=== PATIENT | female | born 1940 | race Caucasian/White ===

== ENCOUNTER 2024-09-20 01:32 | Observation (INO) | payer MEDICARE, SELFPAY ==
[2024-09-19 21:40] VITALS: BP 203/100
[2024-09-19 22:43] LABS: % Basophils 0.6 % (0-2); % Eosinophils 0.3 % (0-6); % Immature Granulocytes 0.3 % (0-0.5); % Lymphocytes 8.7 % (20.5-51.1); % Neutrophils 84.1 % (42.2-75.2); Absolute Lymphocytes 0.6 10^3/uL (1.2-3.4); Absolute Monocytes 0.4 10^3/uL (0.1-0.6); Absolute Neutrophils 5.8 10^3/uL (1.4-6.5); Hematocrit 40.1 % (37.0-47.0); Hemoglobin 13.5 g/dL (12.0-16.0); Mean Corp Hgb Conc. 33.7 g/dL (33.0-37.0); Mean Corpuscular Hgb 28.8 pg (27.0-31.0); Mean Corpuscular Volume 85.5 fL (81.0-99.0); Mean Platelet Volume 10.8 fL (7.4-10.4); Nucleated Red Blood Cells % 0 %; Platelet Count 191 10^3/uL (130-400); Red Blood Cell Count 4.69 10^6/uL (4.20-5.40); White Blood Cell Count 6.9 10^3/uL (4.8-10.8)
[2024-09-19 22:56] LABS: ALT (SGPT) 17 U/L (0-35); AST (SGOT) 30 U/L (14-36); Albumin 4.4 g/dl (3.5-5.0); Alkaline Phosphatase 66 U/L (38-126); Blood Urea Nitrogen 17 mg/dl (7-17); Calcium 10.9 mg/dl (8.4-10.2); Carbon Dioxide 26 mmol/L (22-30); Chloride 103 mmol/L (98-107); Glucose 111 mg/dl (70-99); Sodium 139 mmol/L (135-145); Total Bilirubin 0.4 mg/dl (0.2-1.3); Total Protein 7.2 g/dl (6.3-8.2); eGFR 55.21
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
[2024-09-20] VITALS (7 sets, daily range): BP systolic 120–167; BP diastolic 65–88; PULSE 60–73; BMI 20.2; BMI 19.3
[2024-09-20 01:02] LABS: Troponin I < 0.012 ng/ml
--- NOTE | 2024-09-20 01:08 | HPS.HSE ---
Family Physician
-
Family Physician: Iman Ruano, DO
Chief Complaint
-
Fall / Arm Pain
History of Present Illness
Patient is an 83y F with PMH significant for hypertension and anxiety who presents to ED complaining of collapse at home and L forearm pain. History obtained from patient and family at the bedside. 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 The daughter has been in the midst of a manic episode - leading to significant stress for the patient. Today, she misplaced her daughter's anti-seizure medication and became quite upset about this. She was
speaking with another daughter on the phone when she stated that she felt lightheaded and overwhelmed. The daughter on the phone heard a loud noise and a few seconds of quiet before the patient returned to the phone noting that she had fallen.
Patient noted significant pain in the L forearm when she attempted to get up.
She states that she struck the back of her head during the fall.
She does not believe that she passed out; however, she does not recall the immediate events of the fall very well.
Patient denies any headache, chest pain, dyspnea, or other areas of pain besides the L forearm.
She had a recent URI - about one week ago - but states that she is feeling much better other than a lingering, dry cough.
Medical History
Past Medical History
Past Medical History: Reports Other
Additional Past Medical History:
Hypertension
Osteoporosis
Anxiety / Insomnia
Past Surgical History: Reports Other
Additional Past Surgical History:
Lumbar Discectomy
Bunionectomy
Social History
Tobacco: Former Smoker (Quit smoking 35 years ago. Approx 20 pack years total use.)
Alcohol: None
Drug: None
Personal:
Living: With Family
Family History
Family History: Not pertinent
Allergies / Home Medications
Allergies reflects when Allergies were last updated in [facility].
Home Medications with original date entered in [facility]
Allergy/Medication List:
Allergies
Allergy/AdvReac Type Severity Reaction Status Date / Time
Penicillins Allergy Unknown Unknown Verified 09/19/24 21:40
Home Medications
amlodipine 10 mg-benazepril 20 mg capsule (Lotrel) 1 cap PO DAILY 09/20/24
atorvastatin 09/20/24 - Patient cannot recall dose.
trazodone 100 mg tablet 100 mg PO HS 09/20/24
Review of Systems
-
History Source: Patient
A 12 point ROS was completed and negative except as noted: Yes
Constitutional: Reports Fatigue; Denies Fever or Chills
EENT: Denies Sore Throat
Respiratory: Reports Cough; Denies Trouble Breathing
Cardiac: Reports Syncope; Denies Chest Pain or Palpitations
Abdomen/GI: Denies Abdominal Pain, Nausea, Vomiting or Diarrhea
: Denies Dysuria or Frequency
Musculoskeletal: Reports Joint Pain; Denies Edema
Neurological: Reports Dizzy; Denies Headache, Weakness or Numbness
Psych: Reports Anxiety; Denies Depression
Physical Exam
Vital Signs
Vital Signs
Temp Pulse Resp BP Pulse Ox
98.3 F 69 19 167/79 96
09/19/24 21:40 09/20/24 00:30 09/20/24 00:30 09/20/24 00:27 09/20/24 00:30
Physical Exam
General: Other (83y F in no acute distress.)
HEENT: Moist mucous membranes and PERRLA
Respiratory: Clear; No Wheezes, Rales or Rhonchi
Cardiac: S1/S2 and Regular Rhythm; No Murmur
GI: Soft, Non Tender, Non Distended and Normal Bowel Sounds
Musculoskeletal: No Clubbing, No Cyanosis, No Edema and Other (L forearm with splint / CELSA wrap in place.)
Neuro: AO x 3 and Nonfocal/grossly intact
Laboratory Results
-
09/19/24 22:31
09/19/24 22:
Laboratory Results
Total Bilirubin 0.4 mg/dl (0.2-1.3) 09/19/24 22:31
AST 30 U/L (14-36) 09/19/24 22:31
ALT 17 U/L (0-35) 09/19/24 22:31
Alkaline Phosphatase 66 U/L (38-126) 09/19/24 22:
Troponin I < 0.012 ng/ml 09/20/24 00:28
Impression/Plan
-
A/P: Patient is an 83y F with PMH significant for hypertension and anxiety who presents to ED for evaluation after fall / collapse at home and L forearm pain.
Syncope / Collapse
- Observe overnight for further evaluation and treatment.
- Seems likely that true syncope did occur - if only briefly - based on history.
- EKG with LBBB and sinus rhythm with a single PAC - no prior for comparison.
- Monitor on tele overnight for any arrhythmia.
- Follow for any new / recurrent symptoms.
- Patient attributes her symptoms / episode to 'stress' which may be the case.
- Check Echo given report of recurrent such symptoms including lightheadedness and fatigue.
Left Ulna Fracture
- Suffered during this evening's fall.
- Patient cannot well describe the mechanism of the fall and notes that she 'must have' tried to catch herself with the left arm during the fall.
- Splint to remain in place overnight.
- Ortho eval in the AM.
- PT / OT evaluations.
DJD / Chronic Hip Pain
- Patient reports chronic bilateral hip pain for which she has been in PT as an outpatient.
- She typically requires use of both arms to stand from a seated position due to her hip discomfort.
- Will be difficult given acute injury / ulna fracture.
- PT / OT evals as noted above.
- ? SNF stay prior to return home.
Benign Hypertension
- BP elevated on arrival - likely combination of pain and stress.
- Continue usual Lotrel dose (will give evening dose now).
- Adjust regimen as needed for adequate control.
Anxiety / Insomnia
- Recent anxiety / stress due to caregiver role.
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
- Continue trazodone.
- Follow-up with PCP as an outpatient.
- Difficult home environment provides additional challenges / barriers to safe discharge.
DVT Prophylaxis: SCDs
Code Status: Full
[2024-09-20] MEDS: DESYREL 50 MG PO (02:38)
[2024-09-20] MEDS: LOTREL 5 MG/20 MG 1 CAPSULE PO (02:58)
--- NOTE | 2024-09-20 03:06 | TRANSFER ---
pt arrived from ED via stretcher at 0200 dx of syncope, fracture left ulna. Pt OX3, able to make all needs known. LUE in posterior long arm splint +CMS to fingers, + radial pulse. Pt denies pain. STAT meds given as received from pharmacy. Assessment
as documented.
[2024-09-20] MEDS: TYLENOL 650 MG PO (09:10)
--- NOTE | 2024-09-20 12:24 | CM ---
Addendum entered by Phylicia Andersen 09/20/24 12:32:
Dispo - pending ortho recs
Original Note:
Met with pt at bedside
Pt reports she lives at listed address, 2 story home; 6 steps to enter, 6 steps to bed/bath. Pts adult daughter with Bipolor disorder lives with her. 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 Has another daughter living in [place] - disabled daughter
currently with that daughter
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
DME - shower chair
SNF/HH - no past hx
Has ride home with family
PCP - Iman Ruano
Pharm - [facility]
Discussed [facility]
Ortho consult pending
PT/OT pending
Plan - anticipate home with VN when medically ready
--- NOTE | 2024-09-20 13:39 | W.PN.UPDATE ---
Update Note
Progress Note Update
non billable note
Admission note/images/labs reviewed
Patient concerned about left arm pain, awaiting Ortho input. will need PT evaluation post WB status clarified
No further dizziness episode, check ortho vitals, echo pending. ok to stop telemetry
CM to help with dispo planning
--- NOTE | 2024-09-20 15:57 | CON.ORTHO ---
Consultation - Orthopedics
History
HPI: 83-year-old female presented to the emergency department yesterday evening after a fall at home with complaints of left forearm pain. She was subsequently diagnosed with a nondisplaced ulnar shaft fracture. She was placed in splint and
admitted to the hospital service for further workup regarding her fall. This afternoon patient reports feeling comfortable in splint. She localizes discomfort to the left forearm. Denies any associated numbness or tingling. She is right-hand
dominant. She reports that she is the primary caregiver for her daughter who deals with mental health issues. She cannot recall the details of her fall and reports that she 'blacked out'.
Allergies / Home Medications
Past medical history: Hypertension, anxiety, osteoporosis
Past surgical history: Lumbar discectomy, bunionectomy
Family history: Not pertinent
Social history: Remote smoking history, , lives with daughter
Allergy/AdvReac Type Severity Reaction Status Date / Time
Penicillins Allergy Unknown Unknown Verified 09/19/24 21:40
�Medication �Instructions �Recorded
amlodipine 10 mg-benazepril 20 mg 1 cap PO DAILY 09/20/24
capsule (Lotrel)
atorvastatin 09/20/24
trazodone 100 mg tablet 100 mg PO HS 09/20/24
Vital Signs / Lab Results
Temp Pulse Resp BP Pulse Ox
98 F 60 16 121/65 95
09/20/24 15:25 09/20/24 15:25 09/20/24 15:25 09/20/24 15:25 09/20/24 15:25
09/19/24 22:31
09/19/24 22:31
10 point review systems reviewed and negative unless otherwise stated
General: Pleasant, no acute distress
Neuro: AAOX 3, no focal neurodeficits
Musculoskeletal left upper extremity
Splint in place left upper extremity
Exposed digits warm sensate mobile
Splint does extend past the elbow
No other areas of bony tenderness palpation crepitation of long bones or joints on tertiary examination
Diagnostic studies
X-rays 2 view left forearm reviewed by myself. There is nondisplaced distal third ulnar shaft fracture. Although no dedicated elbow x-rays, the radius does appear to be aligned with the capitellum in both views. There is some mild widening noted
at the [facility], no previous radiographs for comparison.
Assessment / Plan
83-year-old female status post fall nondisplaced left ulnar shaft fracture. At this point would recommend conservative treatment. Continue immobilization in previously applied splint. Patient is complaining of some heaviness of her splint and
would recommend using a sling when ambulating for additional support. Would like to see patient back in the office about 10 days for repeat evaluation with repeat radiographs of left forearm and elbow to assess for any interval displacement.
Hopefully at that point we can transition her into a functional brace and continue with conservative treatment. I did genetic counsellor patient that there is a chance that this could displace and might potentially require surgical intervention. No acute
orthopedic intervention planned. Please reach out any questions or concerns.
[2024-09-20] MEDS: LOTREL 10 MG/20 MG 1 CAPSULE PO (21:06)
[2024-09-20] MEDS: DESYREL 100 MG PO (21:06)
[2024-09-20] MEDS: TUMS CHEWABLE TABLET 200 MG PO (21:22)
[2024-09-21] VITALS (8 sets, daily range): BP systolic 104–158; BP diastolic 58–86; PULSE 54–64
[2024-09-21] MEDS: TYLENOL 650 MG PO (08:22)
[2024-09-21] MEDS: MOTRIN 400 MG PO (09:57)
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
--- NOTE | 2024-09-21 15:39 | CM ---
Addendum entered by Kimi Mccullough 09/21/24 16:06:
emailed list of private caregivers and Medicare.gov resource to daughter.
Original Note:
Pt is ready for dc. Spoke with daughter who will be looking at home caregivers.
SW made a referral to [facility] for post dc support.
Also offered private pay agency support, but will start with [facility]
--- NOTE | 2024-09-21 19:14 | PTCARENOTE ---
per MD update note, ok to stop telemetry. will remove at this time.
[2024-09-21] MEDS: LOTREL 10 MG/20 MG 1 CAPSULE PO (21:34)
[2024-09-21] MEDS: DESYREL 100 MG PO (21:34)
[2024-09-22 02:40] VITALS: BP 138/77
[2024-09-22 07:26] VITALS: BP 181/75
[2024-09-22 10:58] VITALS: BP 140/76; BP 148/66; BP 161/87; PULSE 60; PULSE 63; O2SAT 99
--- NOTE | 2024-09-22 13:41 | W.PN.HOSP.TC ---
Today's Communication/Plan
-
d/c home with [facility]
Assessment / Plan
Assessment / Plan
Syncope
Presumed vasovagal in nature
-Echocardiogram did not show any significant valvular abnormality. Preserved EF
-Orthostatic vitals negative
-EKG showing left bundle branch block, no prior EKGs to compare. No echocardiogram findings suggestive of acute TN.
-Patient have episodes of stress as part of taking care of her daughter with psychiatric issue and at times feels dizzy
Left Ulna Fracture
-Secondary to syncope/fall
-Orthopedic surgery evaluated and recommended to maintain arm in functional sling
-Patient to follow-up with orthopedic surgery in 7-10 days
-Patient evaluated by physical therapy and appropriate for home level care
DJD / Chronic Hip Pain
-Patient reports chronic bilateral hip pain for which she has been in PT as an outpatient.
-She typically requires use of both arms to stand from a seated position due to her hip discomfort.
-Will be difficult given acute injury / ulna fracture.
Benign Hypertension
-Maintained on home doses of amlodipine/benazepril
Anxiety / Insomnia
- Recent anxiety / stress due to caregiver role.
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
- Continue trazodone.
- Follow-up with PCP as an outpatient.
- Difficult home environment provides additional challenges / barriers to safe discharge.
DVT Prophylaxis: SCDs
Code Status: Full
09/21 Patient remains anxious regarding being discharged home. Patient apparently quite independent on PT evaluation. Patient will social issues with limited home support. Discussed with daughter and may need to arrange private aide for few days
for patient to help.
Anticipated Discharge: Today
Subjective/Interval History
-
Date of Service: September 22, 2024
Complains of left arm pain
No other issues
Objective Data
-
Vital Signs:
Vital Signs
Temp Pulse Resp BP Pulse Ox
98.2 F 52 14 181/75 98
09/22/24 07:26 09/22/24 07:26 09/22/24 07:26 09/22/24 07:26 09/22/24 07:26
I&O
09/21/24 09/22/24 09/23/24
07:59 06:59 06:59
Intake Total
Balance
Review of Systems
-
Respiratory: Reports No Symptoms
Cardiac: Reports No Symptoms
Abdomen/GI: Reports No Symptoms
Physical Exam
-
General: Comfortable
HEENT: Negative Oxygen
Respiratory: Clear to Auscultation
Cardiac: Regular Rhythm and S1/S2; Negative Murmur or Rub
GI: Soft, Nontender and Nondistended
Musculoskeletal: No Edema and Other (Left arm sling in place)
Neuro: Awake, Alert, Oriented, No Motor Deficits and Nonfocal/Grossly Intact
Psych: Calm
--- NOTE | 2024-09-22 13:47 | CM ---
Addendum entered by Concepción Galarza 09/22/24 15:58:
Script obtained for shower chair and faxed to Lyndon at [employer], will be delivered to the home tomorrow, he states.
.
Daughter updated.
Addendum entered by Concepción Galarza 09/22/24 15:09:
CM spoke with daughter again. She requests commode. Therapy updated and script obtained from .
Daughter also wants a shower chair. [facility] updated to follow up on this and sent script to them also.
Family transport home today.
Original Note:
CM following re: d/c planning.
CM met with pt at bedside.
She resides in [facility] with her daughter. 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
Currently, they are staying with her oldest daughter in [place]. Address [address]
Pt states she is concerned about being a burden to her oldest daughter Myriam.
CM explained this is a temporary situation and provided emotional support.
CM offered her a referral to [facility], but she states she has been through their process in the past and is over income.
She is not interested in paying privately for an aide.
She is agreeable to home care. She provided permission for CM to speak with her daughter Myriam.
Call placed, spoke with daughter. She is concerned how much care the pt will need.
We discussed therapy recommendations for home health. She initially wanted [facility], as her sister uses this agency, but agreed to [facility], as she believes [facility] will take a few weeks before beginning services. She would like to know when [facility] can
start. She also asks about an aide.
JANES explained an aide likely will come once a week, if available. CM will find out about aide availability when speaking with [facility].
She verbalized understanding and confirmed plan is for pt to return to her home.
Call placed to [facility], advised aide is available 1x per week. Also, [facility] earliest start is mid/end of the week. However, if no intermediate needed, only PT OT and aide, can begin services tomorrow or Tues. Discussed with , confirmed no
particular need for RN. Daughter would very much like daily aide services. CM explained there is a cap with insurance, so if she wished to supplement, it would be private pay. She states that is out of the question right now. However, she does have
the resources emailed to her of caregiver agencies.
Goal: home with [facility] to daughter's home today.
[2024-09-22 14:50] VITALS: BP 149/70
[2024-09-22] MEDS: MOTRIN 400 MG PO (15:29)
--- NOTE | 2024-09-22 17:34 | W.DCSUMMARY ---
Discharge Summary
Discharge Data
Date of Admission: 09/20/24
Date of Discharge: 09/22/24
-
Pending Results: No
Hospital Course
Discharging Physician : Dr Rafy Nair
Disposition : Home with home care
Primary care physician : Dr Iman Ruano
Principal Discharge diagnosis :
Left ulnar fracture
Vasovagal syncope
Chronic Discharge diagnosis :
Osteoarthritis of hip
Essential hypertension
Anxiety/insomnia
Hospital Course :
Patient is 83-year-old female with no mentioned past medical history came to ER after having a syncope and left arm injury. Did not have any prodromal symptoms and woke up with arm pain. In ER workup showing patient having left ulnar midshaft
fracture which was nondisplaced. Patient was admitted to telemetry floor for plan for evaluation by orthopedic surgery. Orthopedic surgery evaluated following day and recommended a functional sling and immobilization with patient follow-up in
office in 7 to 10 days. Patient was maintained on oral pain medication. Patient was evaluated by physical therapy and was appropriate for home level care. Patient had significant anxiety as patient have limited support at home although patient
quite independent on PT evaluation, agfter repeated discussion with daughter/patient regarding appropriateness of home level care, patient is being discharged home with home health care.
Patient syncope was felt to be vasovagal in nature as patient have social stressors at home. Patient had a left bundle branch block in EKG which is presumed chronic in nature. Troponin were negative. Echocardiogram was done which did not show any
wall motion defect or any valvular abnormality. Patient to follow-up with primary care physician in office.
Important imaging findings :
None
Procedure findings :
None
Discharge Plan
-
Patient Disposition: Home with Home Care
Discharge Diagnosis/Procedures: Left ulnar fracture
Condition: Fair
Diet: Regular
Activity: As tolerated
Driving Restrictions: No driving
Bathing Restrictions: OK to Shower
Referrals:
Brenden Fernández MD [Active] - in two weeks
Iman Ruano DO [Family Provider] - in one week
Prescriptions:
New
tramadol 50 mg tablet
50 mg PO Q8H PRN (Reason: mod sev pain) Qty: 14 0RF
docusate sodium [Col-Rite] 100 mg capsule
100 mg PO BID Qty: 30 0RF
Continued
trazodone 100 mg Tablet
100 mg PO HS
amlodipine-benazepril [Lotrel] 10-20 mg Capsule
1 cap PO DAILY
atorvastatin
Discharge Orders:
Discharge Patient (As Directed); Ordered 09/22/24
Ordered By: Rafy Nair
Discharge Date and Time
Print Language: SETSWANA
--- NOTE | 2024-09-23 10:57 | CM ---
[facility] They have received request and will follow the patient at home.
== END 2024-09-22 17:40 | disposition home health service (06) ==
LOC: 2 SOUTH 01:32
PROVIDERS: Emergency Medicine; ADMITTING PHYSICIAN Hospitalist; ATTENDING PHYSICIAN Hospitalist; CONSULT PHYSICIAN Orthopaedic Surgery; EMERGENCY PHYSICIAN Student in an Organized Health Care Education/Training Program; FAMILY PHYSICIAN Family Medicine
DX: M80.032A Age-related osteoporosis with current pathological fracture, left forearm, initial encounter for fracture (principal); R42 Dizziness and giddiness; I11.9 Hypertensive heart disease without heart failure; W01.0XXA Fall on same level from slipping, tripping and stumbling without subsequent striking against object, initial encounter; Y93.01 Activity, walking, marching and hiking; Y92.009 Unspecified place in unspecified non-institutional (private) residence as the place of occurrence of the external cause; M79.632 Pain in left forearm; E78.00 Pure hypercholesterolemia, unspecified; R55 Syncope and collapse; I44.7 Left bundle-branch block, unspecified; G89.29 Other chronic pain; F41.9 Anxiety disorder, unspecified; M47.812 Spondylosis without myelopathy or radiculopathy, cervical region; M16.10 Unilateral primary osteoarthritis, unspecified hip; G47.00 Insomnia, unspecified; Z87.891 Personal history of nicotine dependence; Z88.0 Allergy status to penicillin; Z86.73 Personal history of transient ischemic attack (TIA), and cerebral infarction without residual deficits; Z63.4 Disappearance and death of family member; Z63.6 Dependent relative needing care at home; Z65.8 Other specified problems related to psychosocial circumstances
CPT/HCPCS: 29105; 70450; 72125; 73090; 80053; 84484; 85025; 93005; 93306; 97116; 97162; 97165; 99285; G0378

== ENCOUNTER 2024-10-31 16:13 | Emergency (ER) | payer MEDICARE, SELFPAY ==
[2024-10-31 16:30] VITALS: BP 149/69
[2024-10-31 16:55] LABS: % Basophils 0.8 % (0-2); % Immature Granulocytes 0.2 % (0-0.5); % Lymphocytes 15.4 % (20.5-51.1); % Monocytes 7.3 % (1.7-9.3); % Neutrophils 75.3 % (42.2-75.2); Absolute Basophils 0.1 10^3/uL (0-0.2); Absolute Eosinophils 0.1 10^3/uL (0-0.7); Absolute Monocytes 0.5 10^3/uL (0.1-0.6); Absolute Neutrophils 4.7 10^3/uL (1.4-6.5); Hematocrit 38.6 % (37.0-47.0); Hemoglobin 12.5 g/dL (12.0-16.0); Mean Corp Hgb Conc. 32.4 g/dL (33.0-37.0); Mean Corpuscular Hgb 28.5 pg (27.0-31.0); Mean Corpuscular Volume 88.1 fL (81.0-99.0); Mean Platelet Volume 10.8 fL (7.4-10.4); Nucleated Red Blood Cells % 0 %; Platelet Count 191 10^3/uL (130-400); Red Blood Cell Count 4.38 10^6/uL (4.20-5.40); Red Cell Dist. Width 14.1 % (11.5-14.5); White Blood Cell Count 6.2 10^3/uL (4.8-10.8)
[2024-10-31 17:08] LABS: ALT (SGPT) 14 U/L (0-35); AST (SGOT) 22 U/L (14-36); Albumin 4.3 g/dl (3.5-5.0); Alkaline Phosphatase 52 U/L (38-126); Blood Urea Nitrogen 20 mg/dl (7-17); Calcium 10.9 mg/dl (8.4-10.2); Carbon Dioxide 27 mmol/L (22-30); Chloride 107 mmol/L (98-107); Glucose 167 mg/dl (70-99); Potassium 3.8 mmol/L (3.5-5.1); Sodium 142 mmol/L (135-145); Total Bilirubin 0.4 mg/dl (0.2-1.3); eGFR 54.87
[2024-10-31 17:16] LABS: NT-proBNP 1060 pg/ml
[2024-10-31 18:02] VITALS: BP 135/56
[2024-10-31 18:34] VITALS: BMI 20.7
[2024-10-31 18:35] LABS: D-Dimer 2.31 ug/mlFEU (0.00-0.50)
[2024-10-31 18:44] LABS: Troponin I < 0.012 ng/ml
[2024-10-31 19:00] VITALS: BP 150/78
[2024-10-31 20:00] VITALS: BP 139/61
[2024-10-31 20:22] VITALS: BP 155/71
[2024-10-31 21:00] VITALS: BP 153/77
--- NOTE | 2024-10-31 21:03 | ED.GENMED ---
History of Present Illness
General
Chief Complaint: Swelling
Time Seen by Provider: 10/31/24 17:53
History of Present Illness
History of Present Illness:
Patient presents complaining of bilateral leg swelling. Progressed after increasing her amlodipine dose. Stopped another blood pressure medication recently. No chest pain. Some ongoing shortness of breath.
Past History
Past History
ED Past Medical History: HTN and Hypercholesterolemia
ED Past Surgical History: Appendectomy and Orthopedic
Review of Systems
Review of Systems
All Other Systems: Not applicable
Constitutional: Denies fever or chills
Cardiac: Reports no symptoms
ABD/GI: Reports no symptoms
Phy Exam
Physical Exam
Physical Exam:
GENERAL: Alert and oriented in no apparent distress
EYE: Orbits normal.
NECK: Supple, no thyroid palpable
ENT: Pharynx without erythema
CARDIAC: Regular rate and rhythm
LUNGS: Clear breath sounds,normal
ABDOMEN: Soft, without focal tenderness or distention
NEUROLOGICAL: Alert and oriented , grossly non-focal
SKIN: Warm and dry, no rash or lesion, no discoloration, skin intact.
MUSCULOSKELETAL: Mild edema of both ankles. No significant pitting edema extending up the ankles.
PSYCH: Normal and appropriate interaction.
Scores
Heart Failure Risk
Heart Failure Risk Score: Yes
History of Stroke or TIA: No
History of intubation for respiratory distress: No
Heart rate on ED arrival >/= 110: No
SaO2 <90% on arrival on room air: No
HR >/=110 during 3min walk test (or too ill to perform test): No
ECG has acute ischemic changes: No
Urea >/=12mmol/L (BUN 33.6mg/dL): No
Serum CO2>/=35mmol/L: No
Troponin I or T elevated to MA Level (0.4mg/dL): No
NT-proBNP >/=5,000ng/L (5,000pg/ml): No
HF Risk Score: 0
Admission Status: LOW RISK 2.8% Consider discharge to home with f/u visit to PCP/Powder Line Repairer
Course
Orders/Labs/Results
Orders:
Orders
10/31/24 16:41
Complete Blood Count/With Diff Urgent
Comprehensive Metabolic Panel Urgent
NT-proBNP Urgent
10/31/24 18:07
CT Head W/o Iv Contrast Urgent
Comment:
Reason For Exam: juarez
10/31/24 18:14
D-Dimer Urgent
Troponin I Urgent
10/31/24 18:54
CT Chest Pe Study Urgent
Comment:
Reason For Exam: sob pos dimer
10/31/24 20:43
EKG [Electrocardiogram (*1)] Urgent
Reason for Study: Palpitations
EKG- Treatment ONCE
Abnormal Lab Results
10/31/24 10/31/24
16:41 18:14
MCHC 32.4 L g/dL
(33.0-37.0)
MPV 10.8 H fL
(7.4-10.4)
Absolute Lymphs (auto) 1.0 L 10^3/uL
(1.2-3.4)
Neutrophils % 75.3 H %
(42.2-75.2)
Lymphocytes % 15.4 L %
(20.5-51.1)
D-Dimer 2.31 H ug/mlFEU
(0.00-0.50)
BUN 20 H mg/dl
(7-17)
Glucose 167 H mg/dl
(70-99)
Calcium 10.9 H mg/dl
(8.4-10.2)
10/31/24 16:41
10/31/24 16:41
Vital Signs
Initial and Last Documented VS:
Initial Vital Signs
Temp Pulse Resp BP Pulse Ox
98.2 F 70 18 149/69 97
10/31/24 16:30 10/31/24 16:30 10/31/24 16:30 10/31/24 16:30 10/31/24 16:30
Last Documented Vital Signs
Temp Pulse Resp BP Pulse Ox
98.2 F 80 17 155/71 94
10/31/24 16:30 10/31/24 20:45 10/31/24 20:45 10/31/24 20:22 10/31/24 20:45
*Radiology
Radiology exam reviewed: radiology read reviewed (No acute findings on chest CT or head CT)
*EKG
Interpreted by ED Provider?: Yes
Interpretation: abnormal
Comparison EKG: no changes
Heart Rate: 62
Rate: normal
Rhythm: sinus
Wheeler: normal axis
Interval: normal interval
QRS Pattern: left bundle branch block
Ischemia: no ischemia
*Hammer Shop Supervisor Interpretation
Rate: normal
Interpretation: normal
Heart Rate: 62
Rhythm: sinus
*Critical Care Note
Total Time (30-74mins, 75-104mins- exclusive of procedures): Not Applicable
Data Reviewed
Review of Other/Old Records Reveals: Labs, Records and Testing
Update Note
Update Note:
Patient remains medically stable and nontoxic. Despite a minimal proBNP elevation she is not clinically in heart failure. Her lungs are clear. She is in no respiratory distress. CT scan shows no vascular congestion. She has no pulmonary emboli.
She has no pericardial effusion. Her last echo was reasonable. Left bundle branch block is stable. Leg edema in my opinion is likely from her amlodipine. Lengthy discussion. Patient is stable for discharge
ED Attending Note
-
Portions of this chart may have been created with voice recognition software.� Occasional wrong word or��sound alike� substitutions may have occurred due to the inherent limitations of voice recognition software.
Discharge Plan
Departure
Patient Disposition: Home (Routine Discharge)
Date of Disposition: 10/31/24
Time of Disposition: 21:05
Patient with high blood pressure during this ER visit?: Yes
Discharge Problem:
Leg edema, Hand swelling, Secondary to splint/fracture
Instructions: Dependent Edema (DC), BLOOD PRESSURE
Prescriptions:
No Action
trazodone 100 mg Tablet
100 mg PO HS
amlodipine-benazepril [Lotrel] 10-20 mg Capsule
1 cap PO DAILY
atorvastatin
tramadol 50 mg tablet
50 mg PO Q8H PRN (Reason: mod sev pain) Qty: 14 0RF
docusate sodium [Col-Rite] 100 mg capsule
100 mg PO BID Qty: 30 0RF
Referrals:
UNKNOWN - PT NOT,INTERVIEWE [Family Provider] -
Activity Restrictions/Additional Instructions:
Call your primary physician tomorrow for close follow-up and your integration developer.
Would also recommend calling the orthopedist. Maybe they can get you in sooner to remove the arm cast
Return sooner with increased pain increased swelling fever shortness of breath or any other concerning symptoms
Interventions
Interventions:
*Risk Screen - Suicide Last Done: 10/31/24 16:30
*General Assessment Last Done: 10/31/24 16:30
*Neglect/Abuse Screening Last Done: 10/31/24 16:30
*ED COVID-19 Vaccine History Last Done: 10/31/24 16:30
ED- Cardiac Assessment Last Done: 10/31/24 19:45
ED- Pulmonary Assessment Last Done: 10/31/24 19:45
ED-Skin Assessment Last Done: 10/31/24 18:01
Discharge Date and Time
Print Language: TELUGU
== END 2024-10-31 21:21 | disposition home or self-care (01) ==
LOC: EMR 16:13
PROVIDERS: EMERGENCY PHYSICIAN Emergency Medicine
DX: R60.0 Localized edema (principal); I10 Essential (primary) hypertension; E78.00 Pure hypercholesterolemia, unspecified; Z90.49 Acquired absence of other specified parts of digestive tract; I44.7 Left bundle-branch block, unspecified
CPT/HCPCS: 99284; 70450; 71275; 80053; 83880; 84484; 85025; 85379; 93005; Q9967

== ENCOUNTER → 2024-12-30 11:19 | Outpatient (REF) | payer MEDICARE, SELFPAY | LOC: HWRCS 11:19 | PROVIDERS: ATTENDING PHYSICIAN Internal Medicine Cardiovascular Disease; FAMILY PHYSICIAN Family Medicine | DX: R06.02 Shortness of breath (principal) | CPT/HCPCS: 78452; 93017; A9500; J2785 ==

== ENCOUNTER → 2025-02-28 15:10 | Outpatient (REF) | payer MEDICARE, SELFPAY | LOC: DHSLP 15:10 | PROVIDERS: ATTENDING PHYSICIAN Internal Medicine Cardiovascular Disease | DX: G47.33 Obstructive sleep apnea (adult) (pediatric) (principal); R40.0 Somnolence; I10 Essential (primary) hypertension | CPT/HCPCS: 95800 ==